=== PATIENT | female | born 1965 | race Caucasian/White ===

== ENCOUNTER 2016-10-23 19:15 | Emergency (ER) | payer MEDICARE ==
[2016-10-23 19:55] VITALS: BP 131/67
[2016-10-23] MEDS ORDERED: HYDROcodone/ACETAMIN 5-325 MG* 1 TAB PO ONE (20:21)
--- NOTE | 2016-10-23 20:59 | RAD ---
INDICATION: Shoulder pain after a fall COMPARISON: None. TECHNIQUE: 4 views of the right shoulder were obtained. FINDINGS: Depicted best on the AP view, the clavicle is superiorly displaced from the acromium more than one width of the bone. The clavicle is elevated approximately 1.8 cm above the coracoid process. No acute fracture is radiographically apparent. A bony focus overlying the superior lateral aspect of the humeral head could represent calcium in the supraspinatus tendon. IMPRESSION: 1. RADIOGRAPHIC FEATURES ARE CONSISTENT WITH A ROCKFORD TYPE 3 ACROMIOCLAVICULAR SEPARATION. 2. CHRONIC FINDINGS INCLUDE APPEARANCE THAT CAN BE SEEN IN THE SETTING OF SUPRASPINATUS CALCIFIC TENDINITIS.
--- NOTE | 2016-10-23 21:15 | UC ---
Shoulder Pain HPI - HPI Summary HPI Summary: The patient comes in today for: 1. Right shoulder pain: Onset: 1 hour ago. Palliative/provocative: Shoulder movement makes it worse. Quality: Sharp Region: Right shoulder. Severity: At rest: 5/10 Time: Constant. Associated symptoms: Numbness or weakness: None. Event: She fell down steps (she has MS). Treatment: 600 ibuprofen which did not help. She has not had any problems with hydrocodone which she takes for migraine headaches. 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 Psychological History: Depression - Surgical History Surgical History: Yes Surgery Procedure, Year, and Place: bilat broken leg repairs - Family History Known Family History: Positive: Diabetes Negative: Cardiac Disease, Hypertension - Social History Alcohol Use: Weekly Substance Use Type: None Substance Use Comment - Amount & Last Used: daily usage Smoking Status (MU): Never Smoked Tobacco Review of Systems Constitutional: Negative Skin: Negative Eyes: Negative ENT: Negative Respiratory: Negative Cardiovascular: Negative Gastrointestinal: Negative Musculoskeletal: Arthralgia All Other Systems Reviewed And Are Negative: Yes Physical Exam Triage Information Reviewed: Yes Appearance: Well-Appearing, No Pain Distress, Well-Nourished Vital Signs: Initial Vital Signs Temp 99.0 F 10/23/16 19:51 Pulse 76 10/23/16 19:51 Resp 18 10/23/16 19:51 BP 131/67 10/23/16 19:51 Pulse Ox 100 10/23/16 19:51 Vital Signs Reviewed: Yes Eyes: Positive: Conjunctiva Clear. Negative: Discharge ENT: Positive: Hearing grossly normal. Negative: Pharyngeal erythema, Nasal congestion, Nasal drainage, TM bulging, TM dull, TM red, Tonsillar swelling, Tonsillar exudate Dental: Negative: Gross Decay/Caries @, Dental Fracture @ Neck: Positive: Supple, Nontender, No Lymphadenopathy Respiratory: Positive: Chest non-tender, Lungs clear, No respiratory distress, No accessory muscle use. Negative: Crackles, Wheezing Cardiovascular: Positive: RRR, No Murmur Abdomen Description: Positive: Nontender, No Organomegaly. Negative: Distended , Guarding Musculoskeletal: Positive: Strength Intact, ROM Intact, No Edema, Other: - She has an abrasion of the superior right shoulder. No marked deformation of the shoulder. NVI. Neurological: Positive: Alert, Muscle Tone Normal Psychological: Positive: Age Appropriate Behavior, Consolable Skin: Negative: rashes, breakdown Diagnostics - Radiology No standard instances Xray Interpretation: Positive (See Comments) - IMPRESSION: 1. RADIOGRAPHIC FEATURES ARE CONSISTENT WITH A ROCKFORD TYPE 3 ACROMIOCLAVICULAR SEPARATION. 2. CHRONIC FINDINGS INCLUDE APPEARANCE THAT CAN BE SEEN IN THE SETTING OF SUPRASPINATUS CALCIFIC TENDINITIS. Radiology Interpretation Completed By: Radiologist Shoulder Course/Dx - Differential Dx/Diagnosis Provider Diagnoses: Type III separation of the right AC joint. Discharge - Discharge Plan Condition: Stable Disposition: HOME Patient Education Materials: Acromioclavicular Separation (ED) Referrals: Glenn Tai MD [Primary Care Provider] - Jah Norris MD [Medical Doctor] - As Soon As Possible (Please contact Dr. Norris's office for an appointment this Tuesday for a type III AC joint separation. Take the pain medication as needed. )
== END 2016-10-23 21:43 | disposition home or self-care (01) ==
LOC: UCEAST 19:15
DX: S43.101A Unspecified dislocation of right acromioclavicular joint, initial encounter (principal); W10.9XXA Fall (on) (from) unspecified stairs and steps, initial encounter; Y93.9 Activity, unspecified; Y92.9 Unspecified place or not applicable; G35 Multiple sclerosis; F32.9 Major depressive disorder, single episode, unspecified; Z88.5 Allergy status to narcotic agent; Z88.2 Allergy status to sulfonamides; Z91.040 Latex allergy status
CPT/HCPCS: 99213; G0463

== ENCOUNTER 2016-12-20 10:16 | Emergency (ER) | payer MEDICARE ==
[2016-12-20 11:19] VITALS: BP 109/65
--- NOTE | 2016-12-20 11:48 | UC ---
Lower Extremity/Ankle HPI - HPI Summary HPI Summary: 51 y/o female presents to the urgent care c/o rash in her RT arm for 1 week and LF ankle pain since yesterday s/p falling and twisting her ankle on a wet floor. Pain is 5/10 w/ movement and walking , specially in the medial aspect. of her ankle. She states her cat slept over her arm 1 week ago and the next morning she had rash. It itches and she has applied OTC medications for itchiness and it is not resolving. Pt denies swelling, fever, SOB, N/V/D, chest pain, - History of Current Complaint Chief Complaint: UCLowerExtremity Stated Complaint: SKIN COMPLAINT,LEFT ANKLE PAIN Time Seen by Provider: 12/20/16 11:46 Hx Obtained From: Patient Hx Last Menstrual Period: 11/19/16 ?: No Onset/Duration: Sudden Onset, Lasting Days, Still Present Severity Initially: Moderate Severity Currently: Moderate Pain Intensity: 5 Pain Scale Used: 0-10 Numeric Aggravating Factor(s): Ambulation Alleviating Factor(s): Rest Able to Bear Weight: Yes - Risk Factors Gout Risk Factors: Negative DVT Risk Factors: Negative Septic Arthritis Risk Factor: Negative - Allergies/Home Medications Allergies/Adverse Reactions: Allergies Allergy/AdvReac Type Severity Reaction Status Date / Time Hydromorphone [From Dilaudid] Allergy Intermediate Itching Verified 12/20/16 11: 20 Sulfa Antibiotics Allergy Intermediate Rash Verified 12/20/16 11:20 Latex Allergy Rash Verified 12/20/16 11:20 Sandalwood Fragrance Oil Allergy See Comment Verified 12/20/16 11:20 Sumatriptan [From Imitrex] Allergy Difficulty Verified 12/20/16 11:20 Breathing PMH/Surg Hx/FS Hx/Imm Hx Previously Healthy: Yes Other Endocrine History: MS - Surgical History Surgical History: Yes Surgery Procedure, Year, and Place: bilat broken leg repairs - TIBIA FX W/ SCREWS/PINS & PLATES - Family History Known Family History: Positive: Diabetes Negative: Cardiac Disease, Hypertension - Social History Occupation: Employed Full-time Lives: With Family Alcohol Use: Occasionally Substance Use Type: None Substance Use Comment - Amount & Last Used: daily usage Smoking Status (MU): Never Smoked Tobacco Review of Systems Constitutional: Negative Skin: Rash - LF arm Eyes: Negative ENT: Negative Respiratory: Negative Cardiovascular: Negative Gastrointestinal: Negative Genitourinary: Negative Motor: Negative Neurovascular: Negative Musculoskeletal: Other: - LF ankle pain s/p fall Neurological: Negative Psychological: Negative All Other Systems Reviewed And Are Negative: Yes Physical Exam Triage Information Reviewed: Yes Appearance: Well-Appearing, No Pain Distress, Well-Nourished, Thin Vital Signs: Initial Vital Signs Temp 98.2 F 12/20/16 11:14 Pulse 77 12/20/16 11:14 Resp 14 12/20/16 11:14 BP 109/65 12/20/16 11:14 Pulse Ox 100 12/20/16 11:14 Vital Signs Reviewed: Yes Eye Exam: Normal Eyes: Positive: Conjunctiva Clear - PERRLA, EOMI, fundi grossly normal ENT Exam: Normal ENT: Positive: Normal ENT inspection, Hearing grossly normal, Pharynx normal, TMs normal Dental Exam: Normal Neck exam: Normal Neck: Positive: Supple, Nontender, No Lymphadenopathy Respiratory Exam: Normal Respiratory: Positive: Chest non-tender, Lungs clear, Normal breath sounds Cardiovascular Exam: Normal Cardiovascular: Positive: RRR, No Murmur, Pulses Normal Abdominal Exam: Normal Abdomen Description: Positive: Nontender, No Organomegaly, Soft. Negative: CVA Tenderness (R), CVA Tenderness (L) Bowel Sounds: Positive: Present Musculoskeletal: Positive: Other: - LF ankle with swelling in the lateral malleolus, no tenderness on palapation, Limited ROM due to pain. point tenderness on the medial malleolus, no swelling observed, Positive pulses, capillary refill intact, sensation intact, Lower Extremity Course/Dx - Course Course Of Treatment: 51 y/o female presents to the urgent care c/o rash in her RT arm for 1 week and LF ankle pain since yesterday s/p falling and twisting her ankle on a wet floor. Pain is 5/10 w/ movement and walking , specially in the medial aspect. of her ankle. She states her cat slept over her arm 1 week ago and the next morning she had rash. It itches and she has applied OTC medications for itchiness and it is not resolving. Pt denies swelling, fever, SOB, N/V/D, chest pain,Hx obtained. LF ankle X ray ordered: Impression: Left ankle with lateral swelling. Probably ankle sprain. Pt ankle immobilized with an carmen bacndage and gel splint, refused crutches. Pt Rx Iburpofen PO to allevaite pain and swelling and advised RICE. F/u with PCP if symptoms are not resolving. Pt Rx hidrocortisone 1% cream for her rash. - Differential Dx/Diagnosis Differential Diagnosis/HQI/PQRI: Cellulitis, Fracture (Closed), Sprain, Strain, Other - localized allergic reaction, dermatitis, Provider Diagnoses: 1- Left ankle pain. 2-unspecified rash Discharge - Discharge Plan Condition: Stable Disposition: HOME Prescriptions: Hydrocortisone 1% CREAM(NF) 1 applic TOPICAL BID #1 tube Patient Education Materials: Ankle Sprain (ED), Acute Rash (ED) Referrals: Glenn Tai MD [Primary Care Provider] - 1 Week Additional Instructions: 1- Pleae take ibuprofen as instructed after meals to alleviate pain and swelling. Keep your ankle immobilized and apply ice and rest If symptoms do not improve or worsen please return to the urgent care or f/u with your PCP for further evaluation and treatment 2- Apply topical cream in the affected area if not improvement please f/u with your PCP for further treatment
--- NOTE | 2016-12-20 12:28 | RAD ---
INDICATION: Left ankle injury COMPARISON: None TECHNIQUE: AP, lateral, and oblique views were obtained. FINDINGS: There is no acute fracture or dislocation. There is prominent lateral soft tissue swelling. IMPRESSION: LATERAL SOFT TISSUE SWELLING.
== END 2016-12-20 13:12 | disposition home or self-care (01) ==
LOC: UCCORT 10:16
DX: R21 Rash and other nonspecific skin eruption (principal); M25.572 Pain in left ankle and joints of left foot; Z88.2 Allergy status to sulfonamides; Z88.5 Allergy status to narcotic agent; Z91.040 Latex allergy status
CPT/HCPCS: 99213; G0463

== ENCOUNTER 2017-11-02 06:20 | Day surgery (SDC) | payer MEDICARE ==
--- NOTE | 2017-10-24 03:57 | HP ---
PREOPERATIVE HISTORY AND PHYSICAL: DATE OF ADMISSION/SURGERY: 11/02/17 DATE OF OFFICE VISIT: 10/21/17 ATTENDING SURGEON: Saida Hopkins MD * (DICTATED BY ANTONIA MEDEIROS) PROCEDURE: Right shoulder open coracoclavicular reconstruction with tibialis anterior allograft. CHIEF COMPLAINT: Right shoulder. HISTORY OF PRESENT ILLNESS: Katrin is a 52-year-old female who presents to the clinic for right shoulder pain due to AC joint separation. She failed conservative measures and had continued pain; therefore, the patient has agreed to undergo a right shoulder open coracoclavicular reconstruction with tibialis anterior allograft with Dr. Hopkins on 11/02/17. PAST MEDICAL HISTORY: Depression and MS. PAST SURGICAL HISTORY: ORIF of the bilateral legs. Denies prior complications with anesthesia. MEDICATIONS: 1. Vitamin D3 1000 units 2 daily. 2. Duloxetine 60 mg 1 cap daily. 3. Gilenya 0.5 mg 1 daily. 4. Doxepin 10 mg 1 capsule by mouth at bedtime. 5. Iron 90 mg 1 daily. ALLERGIES: IMITREX, SULFA, DILAUDID, LATEX, SANDALWOOD. FAMILY HISTORY: Positive for diabetes, cancer on her father's side and breast cancer on her mother's side. Denies family history of DVT or PE. SOCIAL HISTORY: She lives alone. 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. She denies tobacco use. She reports occasional alcohol consumption. She is right- hand dominant. REVIEW OF SYSTEMS: A 14-point review of systems was reviewed with the patient. Positive for current complaint, otherwise negative. Denies fevers, chills, chest pain, shortness of breath, history of bleeding disorder, history of DVT or PE, history of MRSA. PHYSICAL EXAMINATION GENERAL: A 52-year-old, well-developed, well-nourished female, in no acute distress, alert and oriented x3. Appropriate mood and affect. VITAL SIGNS: Height 63, weight 138, blood pressure 122/69, respiratory rate 16 , BMI 24.4. HEENT: Normocephalic, atraumatic. PERRLA. Throat clear. NECK: Supple. PULMONARY: Lungs are clear to auscultation bilaterally. No wheezing, rhonchi, or rales. CARDIO: Regular rate and rhythm. S1 and S2. No murmurs, gallops, or rubs. No edema. ABDOMEN: Positive bowel sounds, soft, nontender. NEURO: Alert and oriented x3. Cranial nerves grossly intact. Sensation intact to light touch. MUSCULOSKELETAL: Right upper extremity: Skin is intact. No warmth or erythema. Obvious deformity and tenderness to palpation of the AC joint. Forward flexion to 150; abduction to 140, which is painful; external rotation to 60; internal rotation to T8. +5/5 strength to rotator cuff testing, but with pain. +5/5 gum puller strength. +2 radial pulse. Sensation intact to light touch distally. DIAGNOSTIC STUDIES: MRI reveals AC separation, biceps tendinitis and mild impingement. IMPRESSION: Right shoulder AC separation. PLAN: The patient is scheduled to undergo a right shoulder open coracoclavicular reconstruction with tibialis anterior allograft with Dr. Hopkins on 11/02/17. She will follow up in 10 to 14 days postop for followup and suture removal. Percocet will be used for postop pain management. ANTONIA MEDEIROS [id number]/[facility] #: [id number] [place]
[~2017-11-02 06:20] MED LIST: Buffered Lidocaine 0.9% SYRIN* 5 ML/SYR SYRINGE INTRADERM ONE; ceFAZolin 2 GM PREMIX (*) 2 GM/50 ML BAG IVPB ONE
[2017-11-02] MEDS ORDERED: Lidocaine 2% PF * 5 ML VIAL ONE (07:16)
[2017-11-02] MEDS ORDERED: Midazolam* 1 MG/ML 2 ML VIAL (2 MG) ONE (07:18)
[2017-11-02] MEDS ORDERED: fentaNYL* 50 MCG/ML 2 ML VIAL (100 MCG VIAL) ONE ×2 (07:18→08:17)
[2017-11-02] MEDS ORDERED: Propofol* 10 MG/ML 20 ML BTL IV PUSH ONE (07:19)
[2017-11-02] MEDS ORDERED: Rocuronium* 10 MG/ML VIAL ONE (07:19)
[2017-11-02] MEDS ORDERED: oxyCODONE/Acetamin 5/325 MG* TAB PO PRN (07:59)
[2017-11-02] MEDS ORDERED: fentaNYL* 50 MCG/ML 2 ML VIAL (100 MCG VIAL) IV PRN (07:59)
[2017-11-02] MEDS ORDERED: Ondansetron INJ* 2 MG/ML VIAL IV PRN (07:59)
[2017-11-02] MEDS ORDERED: PROCHLORPERAZINE INJ 5 MG/ML 2 ML VIAL IV PRN (07:59)
[2017-11-02] MEDS ORDERED: oxyCODONE TAB* 5 MG TAB PO PRN (07:59)
[2017-11-02] MEDS ORDERED: Acetaminophen IV 1GM/100ML * 1,000 MG/100 ML VIAL IVPB ONE (07:59)
[2017-11-02] MEDS ORDERED: Naloxone* 0.4 MG/ML 1 ML VIAL IV PRN (07:59)
[2017-11-02] MEDS ORDERED: Ketorolac INJ* 30 MG/ML 1 ML VIAL ONE (08:01)
[2017-11-02] MEDS ORDERED: Scopolamine 1.5 mg* PATCH ONE (08:01)
[2017-11-02] MEDS ORDERED: Famotidine IV* 10 MG/ML 2 ML (20 mg) ONE (08:01)
[2017-11-02] MEDS ORDERED: Sterile Water for Inj* 10 ML ONE (08:03)
[2017-11-02] MEDS ORDERED: Morphine INJ* 2 MG/ML 1 ML CARPUJECT IV PRN (08:06)
[2017-11-02] MEDS ORDERED: Bupivacaine 0.5% SDV PF* 30ML VIAL ONE (08:18)
[2017-11-02] MEDS ORDERED: Desflurane* 240 ML INH ONE (08:31)
[2017-11-02] MEDS ORDERED: Morphine INJ* 10 MG/ML 1 ML CARPUJECT ONE (08:48)
[2017-11-02] MEDS ORDERED: Sugammadex * 500 MG/5 ML VIAL IV PUSH ONE (09:46)
[2017-11-02] MEDS ORDERED: Acetaminophen IV 1GM/100ML * 100 ML ONE (10:46)
[2017-11-02] MEDS ORDERED: PROCHLORPERAZINE INJ 5 MG/ML 2 ML VIAL ONE (11:20)
--- NOTE | 2017-11-02 11:58 | RAD ---
CPT II Codes: G9500 INDICATION: Left clavicle fracture Fluoroscopic services provided for referring physician. 10.5 seconds of fluoroscopy time was used. 4 spot images demonstrates presumed resection of the distal clavicle. IMPRESSION: Fluoroscopic services provided for referring physician.
[2017-11-02 12:22] VITALS: BP 113/66
--- NOTE | 2017-11-03 14:01 | OP ---
CC: PCP, Glenn Tai MD * DATE OF OPERATION: 11/02/17 - [facility] DATE OF : 65 SURGEON: Saida Hopkins MD. RAILROAD CAR CLEANING SUPERVISOR: ANTONIA Maher. An assistant hvac mechanic was needed for the entirety of the case to help with positioning, retraction, and was utilized throughout all portions of the case. ANESTHESIOLOGIST: Monica Walton MD. ANESTHESIA: General. PRE-OP DIAGNOSIS: Type 5 acromioclavicular dislocation. POST-OP DIAGNOSIS: Type 5 acromioclavicular dislocation. OPERATIVE PROCEDURE: Right shoulder AC joint reconstruction with allograft. COMPLICATIONS: None. ESTIMATED BLOOD LOSS: 50 cc. IMPLANTS: Two PEEK Arthrex 5.5 x 8 mm Bio-Tenodesis screws. INDICATIONS: Katrin Madrid is a 52-year-old female who fell down her steps in October a year ago. She tried to treat this conservatively, but had persistent pain and impairments in her function. After extensive discussion of the risks and benefits of surgical versus nonoperative treatment, she has elected to proceed with surgical treatment. Risks include but not limited to bleeding; infection; damage to nerves, vessels, surrounding structures; wound nonhealing; persistent pain; need for further surgery; scarring; stiffness; fracture; failure; risks of anesthesia; damage to surrounding vessels; incomplete relief of pain; as well as the risk of DVT. She elected to proceed. DESCRIPTION OF PROCEDURE: The patient was greeted in the preoperative area by the attending surgeon. Correct extremity was marked and consent was confirmed. The patient was brought back to the operating suite where she was appropriately positioned on the operating table. She then underwent general anesthesia, endotracheal intubation. She was placed in a lazy beach chair position, after which the fluoro was used to confirm her displacement due to loss of visualization. The right shoulder was then prepped and draped in the usual sterile fashion beginning with chlorhexidine soap, scrub, and alcohol wipe and a final prep with ChloraPrep. After appropriate surgical pause indicating site, side, procedure, and administration of antibiotics, a saber incision was then made encompassing the AC joint and the coracoid. The soft tissues were carefully dissected to expose the deltoid and trapezial fascia. An incision was made in line with that along the clavicle to split. The clavicle was then fully exposed for at least 5.5 mm medially to fully laterally. The small AC joint disk was released, the clavicle was found to be completely dislocated. At this point, soft tissues were removed. Fascia was preserved for later closure as well as the AC joint. Once the deltoid and pec fascia were removed off of the clavicle anteriorly, this was followed carefully and the coracoid was identified. It was then exposed on the superior portion and then at this point, gently a dissection was carried around to allow for a Satinsky clamp, which was then used to pass a suture shuttle once. This was passed to allow for a loop suture. Attention was directed to the clavicle. The measurements were made and the conoid tunnel sutures placed more posteriorly along the clavicle at around 45 mm medial to the lateral edge of the clavicle and the trapezoid was marked to be more midline and approximately 15 to 20 mm more lateral to the conoid tunnel. At this point, a distal clavicle excision was done to remove the lateral 8 to 10 mm of the clavicle, after which 2 of the appropriate guidewires were then drilled, beginning first at the conoid, then second at the trapezoid to allow for tunnels to later be reamed once the graft had been determined. In the meantime, the graft had been thawed on the back table; this was a hamstring allograft and this was then whipstitched on each end and placed in tension for at least 15 minutes with 15 pounds of tension to remove the crease from the graft. After this was done, it was found to be at least 5 mm in width and then the center is more robust to almost 5.5 to 6 mm. The tunnel were then drilled over the conoid and trapezoid, tunnels were then drilled over the guidewires with a 5.5 mm reamer. All excess bone was removed. Two passing sutures were placed through the tunnel, the graft was then first passed through under the coracoid after the previously passed loop suture. With passing of the graft, a FiberTape was also passed under the coracoid. At this point, the 2 ends of the allograft were then crossed but the FiberTape was not crossed. The FiberTape as well as the graft sutures were then passed first through the conoid tunnel and then the remaining ones were passed through trapezoid tunnel to help with tension. At this point, the conoid tunnel was fixated first. The FiberTape was passed through the center of the 5.5 PEEK screw with inferior to superior directed pressure on the elbow, and superior to inferior directed pressure on the clavicle to over-reduce the clavicle, the conoid tunnel was secured with a 5.5 mm screw. The remaining graft through the trapezoid tunnel was also pulled under tension and with the clavicle over-reduced, the second screw was passed in the similar fashion. This helped restore and fix the obvious AC dislocation. At this point, the FiberTape sutures that were passed through the center of the islet were also tied down. This helped as an internal brace for this fixation. X-rays were obtained and demonstrate the clavicle was satisfactorily reduced. At this point, the 2 ends of the allograft were sewn to each other and then the excess graft was then passed over and sewn into the AC joint capsule. The wounds were then copiously irrigated with sterile saline. The fascia was closed with 0 Ethibond suture and it was a robust closure, the skin was closed with 2-0 Vicryl and a running nylon suture. Sterile dressings were applied. The wound was injected with 0.25% Marcaine plain. She was placed in a sling, awoken from anesthesia, transferred to PACU in stable condition. POSTOPERATIVE PLAN: She will be nonweightbearing for 6 weeks. She will be discharged with pain medications. I will see the patient back in 10 to 14 days. DVT prophylaxis was considered but deferred due to no previous personal or family history. [id number]/[facility] #: [id number] KASSIE
[2017-11-05] MEDS ORDERED: Scopolamine PATCH Remove* 1 NOTE MISC PATCH OFF ONE (08:02)
== END 2017-11-02 12:26 | disposition home or self-care (01) ==
LOC: OR 06:20
PROVIDERS: ATTEND Orthopaedic Surgery
DX: S43.121A Dislocation of right acromioclavicular joint, 100%-200% displacement, initial encounter (principal); M75.21 Bicipital tendinitis, right shoulder; M75.41 Impingement syndrome of right shoulder; W10.9XXA Fall (on) (from) unspecified stairs and steps, initial encounter; Y92.89 Other specified places as the place of occurrence of the external cause; G35 Multiple sclerosis; F41.8 Other specified anxiety disorders; Z87.891 Personal history of nicotine dependence; G43.909 Migraine, unspecified, not intractable, without status migrainosus
CPT/HCPCS: 76001; 81025; A9270-GY; C1713; J0690; J0780; J1885; J2250; J2270; J2704; J3010; L8699

== ENCOUNTER 2018-02-18 15:06 | Emergency (ER) | payer MEDICARE ==
--- OUTSIDE RECORDS SUMMARY | 2018-02-18 15:17 | XMS REPORT ---
:1965 External Reference #:[id number] Author Organization [facility] Address [address] [place] [address] Phone [phone] Care Team Providers Name Role Phone Luiz Tai MD Primary Care Physician Unavailable Payers Type Date Identification Numbers Payment Provider Subscriber Commercial Policy Number: [id number] Iesha Madrid PayID: [id number] Claims [address] [place] [address] Problems Description No Information Family History Date Family Member(s) Problem(s) Comments Father Bipolar Disorder Father due to Suicide () Father Diabetes Mother Breast Cancer Children None Siblings 2 Siblings Youngest of three children First Brother A&W First Sister A&W Paternal Grandfather due to Unknown to patient () Paternal Grandmother due to Old Age () Maternal Grandfather due to NC () Maternal Grandmother due to Liver Cancer () Social History Type Date Description Comments Education Highest Level Completed, Master's Degree Marital Status Single Lives With Alone Pets 1 cat 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 Cigarette Use Never Smoked Cigarettes ETOH Use Denies alcohol use Recreational Drug Use Denies Drug Use Smoking Patient has never smoked Daily Caffeine Does not consume caffeine Exercise Type/Frequency Does not exercise Seat Belt/Car Seat Always uses seat belt Currently Active Patient is currently sexually active Contraceptive Methods Current methods include levonorgestrel IUD Allergies, Adverse Reactions, Alerts Date Description Reaction Status Severity Comments 12/16/2017 Dilaudid active 12/16/2017 Imitrex active 12/16/2017 Sulfa active Medications Medication Date Status Form Strength Qnty SIG Indications Ordering Provider Gilenya Active Unknown Fluoxetine HCL Active Unknown (PMDD) Doxepin HCL Active Unknown Liletta (52 MG) Active Unknown Medications Administered in Office Medication Date Status Form Strength Qnty SIG Indications Ordering Provider PT SCRN Tbco Administered Injection Vic Ford Id as Non User 018 Danny Jo Vital Signs Date Vital Result Comment 02/07/2018 BP Systolic 102 mmHg BP Diastolic 72 mmHg Height 62 inches 5'2" Last Menstrual Period [id number] 12/16/2017 BP Systolic 116 mmHg BP Diastolic 64 mmHg Height 62 inches 5'2" Weight 139.00 lb BMI (Body Mass Index) 25.4 kg/m2 Last Menstrual Period [id number] 0 Results Test Date Test Result H/L Range Note Ovarian Tumor Panel 12/16/2017 Cea 1.2 ng/mL 0.1-5.0 1 Ca125 25.2 U/mL 0-35 2 Afp Tumor Marker 1.7 ng/mL 3 HCG < 0.60 mIU/mL 4 Laboratory test finding 12/16/2017 LDH 176 U/L 140-271 5 1 Nonsmokers: < 2.9 ng/mL Some smokers may have elevated CEA, usually <5.0 ng/mL. Serum markers are not specific for malignancy, and values may vary by method. The testing method is an immunoenzymatic assay visiting housekeeper by [employer] performed on [employer] DXI 600. Do not interpret serum CEA levels as absolute evidence of the presence or the absence of malignant disease. Use serum CEA in conjunction with information from the clinical evaluation of the patient and other diagnostic procedures. 2 Instrument used is [employer] DXI 600. The assay is a two-site immunoenzymatic "sandwich" assay. Do not interpret CA125 levels as absolute evidence of the presence or the absence of malignant disease. Use in conjunction with information from the clinical evaluation of the patient and other diagnostic procedures. Values obtained with different assay methods cannot be used interchangeably. 3 REFERENCE VALUE <6.0 Reference values are for non- subjects only; production of AFP elevates values in women. ADDITIONAL INFORMATION The testing method is an immunoenzymatic assay manufactured by [employer]. and performed on the [employer] DxI 800. Values obtained with different assay methods or kits may be different and cannot be used interchangeably. Test results cannot be interpreted as absolute evidence for the presence or absence of malignant disease. Alpha-Fetoprotein values are not interpretable in females for the investigation of malignant disease. Test Performed by: [facility] [employer] [facility] [address] [place] [address] 4 <5.0 Negative 5.0 - 25.0 Indeterminate (Repeat testing recommended after 72 hours) >25.0 Positive Perimenopausal women can display HCG levels of up to 20 mIU/mL 5 [id number] Procedures Date CPT Code Description Status 10/07/2017 Mammogram Completed 05/09/2016 Colonoscopy Completed Encounters Type Date Location Provider CPT E/M Dx Office Visit 12/16/2017 2:[facility] Vic Jo M.D. 24837 R19.04 Plan of Care 02/07/2018 - Vic Jo M.D.R19.04 Left lower quadrant abdominal swelling , mass and lumpComments:DISCUSSED HOW GENEN MARKER MAY OR MAY NOT CHANGE THE DECISION TO REMOVE BOTH OVARIES. PT DID NOT ASKE DR ANGEL HOW IT MIGHT AFFECT THAT. IT MAY NOT BE NECESSARY TO HAVE UTERUIS REMOVED IETHRE WAY UNLESS THE OVARY IS CANCEROUS.
--- OUTSIDE RECORDS SUMMARY | 2018-02-18 15:17 | XMS REPORT ---
:1965 External Reference #:[id number] Author Organization [facility] Address [address] [place] [address] Phone [phone] Care Team Providers Name Role Phone Glenn Tai MD Primary Care Physician Unavailable Payers Type Date Identification Numbers Payment Provider Subscriber Commercial Effective: Policy Number: [employer] [place] 2017 [id number] (Oon) PayID: [id number] [address] [place] [phone] Problems Date Description Provider Status Onset: 10/15/2009 Multiple sclerosis Estela Pemberton M.D.,FACP Onset: 01/04/2011 Atypical depressive disorder Estela Pemberton M.D.,FACP Onset: 10/28/2011 Migraine without aura, not Glenn Tai Active refractory Danny,FACP Onset: 11/20/2014 Vitamin D deficiency Estela Pemberton M.D.,FACP Onset: 08/19/2017 Mixed hyperlipidemia Estela Pemberton M.D.,FACP Onset: 09/08/2017 Dislocation of r acromioclav jt, Saida Hopkins MD Active 100%-200% displacmnt, subs Onset: 01/24/2018 Sprain of left acromioclavicular Saida Hopkins MD Active joint, subsequent encounter Family History Date Family Member(s) Problem(s) Comments Father Mental Illness Father due to Suicide () Mother Cancer, Skin melanoma Mother Breast Cancer Siblings 2 half-siblings Social History Type Date Description Comments Marital Status Significant Other Occupation Retired Occupation Currently 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 Cigarette Use Never Smoked Cigarettes ETOH Use 08/19/2017 Rarely consumes alcohol Recreational Drug Use Denies Drug Use Smoking Patient has never smoked Currently Active Patient is currently sexually active General Hx Text no kids Allergies, Adverse Reactions, Alerts Date Description Reaction Status Severity Comments 10/15/2009 Imitrex Gets Respiratory problems active 10/15/2009 Sulfa Hives active 10/15/2009 Dilaudid Ears itch active 10/15/2009 Latex Skin reaction active 10/15/2009 Sandal Wood Turns red and ortiz active Medications Medication Date Status Form Strength Qnty SIG Indications Ordering Provider Duloxetine HCL 10/15/ Active Caps DR 60mg 90cap take one Glenn 2009 Part s capsule Hugo Tai by mouth M.DCarlyle,FACP once daily Gilenya / Active Capsules 0.5mg 1 by Unknown 0000 mouth every day Doxepin HCL / Active Capsules 10mg 90cap take one Glenn 0000 s capsule Hugo Tai by mouth M.DCarlyle,FACP at bedtime Iron / Active Tablets 90(18Fe) daily Unknown 0000 mg Cyclobenzaprine 12/16/ Hx Tablets 10mg 30tab take 1 S43.121D Zaneb HCL 2017 - s tab 3 Yaseen, 01/18/ times a MD 2018 day as needed Cyclobenzaprine 11/03/ Hx Tablets 10mg 30tab take 1 Zaneb HCL 2017 - s tab 3 Yaseen, 12/16/ times a MD 2018 day as needed Percocet 10/31/ Hx Tablets 5-325mg 30tab 1-2 tabs Zaneb 2017 - s by mouth Yaseen, 01/18/ every MD 2017 4-6 hours as needed post op pain Cyclobenzaprine 11/01/ Hx Tablets 5mg 90tab 1-2 tabs S43.51xD Toni HCL 2016 - s by mouth F 08/19/ three Aaron, 2018 times a MD day as needed muscle spasm Naproxen 10/25/ Hx Tablets 500mg 60tab 1 by S43.51xA Toni 2016 - s mouth F 09/07/ twice a Aaron, 2017 day as MD needed pain Vitamin D 10/25/ Hx Tablets 1000Unit 120ta 2 every Glenn (Cholecalciferol) 2015 - day Hugo Skeltond, M.D.,FACP 2018 Pneumovax 23 02/11/ Hx Injection 25mcg/0.5M .500m 0/5 ml G35 Glenn 2016 - L l im x1 Hugo Skeltond, M.D.,FACP 2016 Zostavax 02/11/ Hx Solution [id number] 1unit 1 dose G35 Glenn 2015 - Rec .65ML s s/c x1 Hugo Skeltond, M.D.,FACP 2016 Ergocalciferol 11/25/ Hx Capsules [id number] 12cap by mouth Glenn 2014 - s q1wk for Hugo Skeltond, mon M.D.,FACP 2016 then 2x/mon Triamcinolone 11/20/ Hx Cream 0.1% 30g apply Glenn Acetonide 2014 - Hugo Tai, 04/26/ day as M.D.,FACP 2017 needed to rash on arms. Vitamin D 02/01/ Hx Capsules 400Unit 60cap 1 po bid Glenn 2010 Hugo Tai, M.D.,FACP 2011 Amitriptyline HCL 10/15/ Hx Tablets 25mg 30tab 1 po qhs Glenn 2009 - Hugo Tai, M.D.,FACP 2010 Betaseron / Hx Solution 0.3mg sc 3x/wk Unknown 0000 - Rec 2010 Gilenya / Hx Capsules 0.5mg po qd Unknown - 2014 Zolpidem Tartrate / Hx Tablets 10mg Unknown - 2011 Tramadol HCL / Hx Tablets 50mg 50tab 1-2 Abby 0000 - s tablets Reese, 02/11/ every 8 N.P. 2016 hours as needed Hydrocodone-Aceta / Hx Tablets 5-325mg 1 by Unknown minophen 0000 - mouth 09/07/ 2017 4-6 hours prn. Immunizations CPT Code Status Date Vaccine Lot # [id number] Given 02/09/2017 Influenza Virus Vaccine, Quadrivalent, Split, Preservative Free [id number] Given 02/12/2016 Influenza Virus Vaccine, Quadrivalent, Split Virus, Im Use [id number] Given 02/11/2015 Influenza Virus Vaccine, Quadrivalent, Split, Preservative Free [id number] Given 01/25/2011 Tdap - Tetanus/Diptheria/Acellular Pertussis [id number] Given 01/25/2011 Influenza Virus 3Yrs & Over [id number] Ordered 01/28/2016 Influenza Virus Vaccine, Quadrivalent, Split, Preservative Free Vital Signs Date Vital Result Comment 01/24/2018 Height 63 inches 5'3" Weight 137.00 lb Heart Rate 74 /min BP Systolic Sitting 130 mmHg Lue reg cuff BP Diastolic Sitting 86 mmHg Lue reg cuff Pain Level 1 BMI (Body Mass Index) 24.3 kg/m2 01/18/2018 Height 63 inches 5'3" Weight 137.00 lb Heart Rate 77 /min BP Systolic Sitting 140 mmHg BP Diastolic Sitting 82 mmHg Body Temperature 98.5 F O2 % BldC Oximetry 98 % BMI (Body Mass Index) 24.3 kg/m2 12/16/2017 Height 63 inches 5'3" Weight 138.00 lb BP Systolic 128 mmHg BP Diastolic 72 mmHg Respiratory Rate 20 /min Pain Level 1 BMI (Body Mass Index) 24.4 kg/m2 11/15/2017 Height 63 inches 5'3" Weight 138.00 lb Heart Rate 76 /min BP Systolic Sitting 144 mmHg LA reg cuff BP Diastolic Sitting 80 mmHg LA reg cuff Pain Level 0 BMI (Body Mass Index) 24.4 kg/m2 10/21/2017 Height 63 inches 5'3" Weight 138.00 lb BP Systolic 122 mmHg BP Diastolic 69 mmHg Respiratory Rate 16 /min Pain Level 1 BMI (Body Mass Index) 24.4 kg/m2 10/04/2017 Height 63 inches 5'3" Weight 138.00 lb BP Systolic 130 mmHg BP Diastolic 76 mmHg Respiratory Rate 18 /min Pain Level 1 BMI (Body Mass Index) 24.4 kg/m2 09/08/2017 Height 63 inches 5'3" Weight 138.00 lb Heart Rate 80 /min BP Systolic 100 mmHg BP Diastolic 78 mmHg Respiratory Rate 16 /min Body Temperature 98.2 F Pain Level 6 with use BMI (Body Mass Index) 24.4 kg/m2 08/19/2017 Height 63 inches 5'3" Weight 140.00 lb Heart Rate 83 /min BP Systolic Sitting 150 mmHg BP Diastolic Sitting 90 mmHg Body Temperature 97.8 F O2 % BldC Oximetry 97 % BMI (Body Mass Index) 24.8 kg/m2 12/27/2016 Height 62 inches 5'2" Weight 130.00 lb Heart Rate 85 /min BP Systolic Sitting 148 mmHg BP Diastolic Sitting 78 mmHg Respiratory Rate 14 /min Body Temperature 98.7 F Pain Level 0 BMI (Body Mass Index) 23.8 kg/m2 11/01/2016 Height 62 inches 5'2" Weight 130.00 lb BP Systolic 120 mmHg BP Diastolic 71 mmHg Respiratory Rate 15 /min Pain Level 4 BMI (Body Mass Index) 23.8 kg/m2 10/25/2016 Height 62 inches 5'2" Weight 130.00 lb BP Systolic 139 mmHg BP Diastolic 81 mmHg Respiratory Rate 14 /min Pain Level 4 BMI (Body Mass Index) 23.8 kg/m2 02/26/2016 Height 64 inches 5'4" Weight 132.12 lb Heart Rate 84 /min BP Systolic Sitting 108 mmHg BP Diastolic Sitting 68 mmHg Body Temperature 98.3 F O2 % BldC Oximetry 98 % BMI (Body Mass Index) 22.7 kg/m2 02/12/2016 Weight 134.00 lb Heart Rate 85 /min BP Systolic Sitting 122 mmHg BP Diastolic Sitting 64 mmHg O2 % BldC Oximetry 98 % 11/20/2014 Height 63 inches 5'3" Weight 132.50 lb Heart Rate 74 /min BP Systolic Sitting 115 mmHg BP Diastolic Sitting 67 mmHg Body Temperature 97.5 F O2 % BldC Oximetry 97 % BMI (Body Mass Index) 23.5 kg/m2 10/05/2013 Height 63 inches 5'3" Weight 137.75 lb Heart Rate 84 /min BP Systolic Sitting 118 mmHg BP Diastolic Sitting 66 mmHg Body Temperature 99.1 F BMI (Body Mass Index) 24.4 kg/m2 10/28/2011 Height 63.25 inches 5'3.25" Weight 144.75 lb Heart Rate 84 /min BP Systolic Sitting 118 mmHg BP Diastolic Sitting 70 mmHg BMI (Body Mass Index) 25.4 kg/m2 01/25/2011 Height 63 inches 5'3" Weight 142.00 lb Heart Rate 68 /min BP Systolic Sitting 125 mmHg BP Diastolic Sitting 80 mmHg BMI (Body Mass Index) 25.2 kg/m2 01/04/2011 Height 63 inches 5'3" Weight 145.00 lb Heart Rate 76 /min BP Systolic Sitting 106 mmHg BP Diastolic Sitting 60 mmHg BMI (Body Mass Index) 25.7 kg/m2 10/15/2009 Weight 148.00 lb Heart Rate 80 /min BP Systolic Sitting 118 mmHg BP Diastolic Sitting 74 mmHg Results Test Date Test Result H/L Range Note Laboratory test finding 01/23/2018 Mumps Igg <pending> Rubella Screen Immune Immune Rubeola Measles Igg AB <pending> CBC Auto Diff 01/23/2018 White Blood Count 3.6 10^3/uL 3.5-10.8 Red Blood Count 4.23 10^6/uL 4.00-5.40 Hemoglobin 13.7 g/dL 12.0-16.0 Hematocrit 40 % 35-47 Mean Corpuscular Volume 96 fL 80-97 Mean Corpuscular Hemoglobin 33 pg High 27-31 Mean Corpuscular HGB Conc 34 g/dL 31-36 Red Cell Distribution Width 13 % 10.5-15 Platelet Count 210 10^3/uL 150-450 Mean Platelet Volume 9.7 um3 7.4-10.4 Abs Neutrophils 3.0 10^3/uL 1.5-7.7 Abs Lymphocytes 0.2 10^3/uL Low 1.0-4.8 Abs Monocytes 0.3 10^3/uL 0-0.8 Abs Eosinophils 0.1 10^3/uL 0-0.6 Abs Basophils 0 10^3/uL 0-0.2 Abs Nucleated RBC 0 10^3/uL Granulocyte % 83.1 % High 38-83 Lymphocyte % 5.5 % Low 25-47 Monocyte % 9.0 % High 0-7 Eosinophil % 2.1 % 0-6 Basophil % 0.3 % 0-2 Nucleated Red Blood Cells % 0 Basic Metabolic Panel 01/23/2018 Sodium 140 mmol/L 135-145 Potassium 4.2 mmol/L 3.5-5.0 Chloride 105 mmol/L 101-111 Co2 Carbon Dioxide 29 mmol/L 22-32 Anion Gap 6 mmol/L 2-11 Glucose 82 mg/dL 70-100 Blood Urea Nitrogen 14 mg/dL 6-24 Creatinine 0.69 mg/dL 0.51-0.95 BUN/Creatinine Ratio 20.3 High 8-20 Calcium 9.1 mg/dL 8.6-10.3 Egfr Non- 89.0 >60 Egfr 107.7 >60 1 Order 01/18/2018 EKG <pending> CBC Auto Diff 01/18/2018 White Blood Count 5.0 10^3/uL 3.5-10.8 Red Blood Count 4.21 10^6/uL 4.00-5.40 Hemoglobin 13.5 g/dL 12.0-16.0 Hematocrit 41 % 35-47 Mean Corpuscular Volume 96 fL 80-97 Mean Corpuscular Hemoglobin 32 pg High 27-31 Mean Corpuscular HGB Conc 33 g/dL 31-36 Red Cell Distribution Width 12 % 10.5-15 Platelet Count 221 10^3/uL 150-450 Mean Platelet Volume 10.3 um3 7.4-10.4 Abs Neutrophils 4.3 10^3/uL 1.5-7.7 Abs Lymphocytes 0.3 10^3/uL Low 1.0-4.8 Abs Monocytes 0.4 10^3/uL 0-0.8 Abs Eosinophils 0.1 10^3/uL 0-0.6 Abs Basophils 0 10^3/uL 0-0.2 Abs Nucleated RBC 0 10^3/uL Granulocyte % 85.1 % High 38-83 Lymphocyte % 5.8 % Low 25-47 Monocyte % 7.9 % High 0-7 Eosinophil % 1.0 % 0-6 Basophil % 0.2 % 0-2 Nucleated Red Blood Cells % 0.1 Laboratory test 11/01/2017 Semiten SEE RESULTS BELO 2, 3 finding <SEE NOTE> Laboratory test 08/11/2017 Vitamin D Total 25(Oh) 8.2 ng/mL Low 20-50 finding Lipid Profile 08/11/2017 Triglycerides 53 mg/dL 4 (Trig/Chol/HDL) Cholesterol 227 mg/dL 5 HDL Cholesterol 59.5 mg/dL 6 LDL Cholesterol 157 mg/dL 7 Laboratory test finding 08/11/2017 Glucose 82 mg/dL 70-100 Doxepine 08/11/2017 Doxepin <20 ng/mL 8 Nordoxepin <20 ng/mL 9 Doxepin + Nordoxepin Level See Comment ng/mL 50-150 10 Lipid Profile (Trig/Chol/HDL) 03/01/2016 Triglycerides 47 mg/dL 11 Cholesterol 193 mg/dL 12 HDL Cholesterol 60.1 mg/dL 13 LDL Cholesterol 124 mg/dL 14 Laboratory test finding 03/01/2016 Vitamin D Total 25(Oh) 11.3 ng/mL Low 30-50 Glucose 86 mg/dL 70-100 Vitamin D, 1,25 Dihydroxy 78 pg/mL 18-78 15 Laboratory test 11/22/2014 Hepatitis C Antibody Nonreactive Nonreactive finding HIV 1/2 AB 11/22/2014 HIV 1 2 Antibody Nonreactive Nonreactive 16 Evaluation Laboratory test 11/22/2014 Vitamin D Total 25(Oh) 12.7 ng/mL Low 30-50 finding Lipid Panel 01/25/2011 Triglyceride 77 mg/dL 40-200 Cholesterol 197 mg/dL Less Than 200 17 High Density Lipoprotein 53 mg/dL 40-60 18 Cholesterol/HDL Ratio 3.72 AVERAGE 1-4.44 Low Density Lipoprotein 129 mg/dL High Less Than 100 19 Laboratory test 01/25/2011 Cytology <SEE 20 finding NOTE> Vitamin D,25 Hydroxy 01/25/2011 25-Hydroxy Vitamin <4.0 ng/mL () D2 25-Hydroxy Vitamin D3 28 ng/mL () 25-Hydroxy Vitamin D Total 28 ng/mL () 21 Comp Metabolic Panel 01/25/2011 Sodium 142 mmol/L 135-145 Potassium 4.3 mmol/L 3.5-5.0 Chloride 106 mmol/L 101-111 Co2 (Carbon Dioxide) 31.0 mmol/L 22-32 Anion Gap 5.0 mmol/L 2-11 22 Glucose 86 mg/dL 70-100 BUN 11 mg/dL 6-24 Creatinine 0.8 mg/dL 0.50-1.40 One Over Creatinine 1.25 BUN/Creatinine Ratio 13.8 8-20 Calcium 9.4 mg/dL 8.1-9.9 Total Protein 6.1 GM/DL Low 6.2-8.1 Albumin 4.1 GM/DL 3.6-5.4 Globulin 2.0 GM/DL 2-4 Albumin/Globulin Ratio 2.1 1-3 Bilirubin Total 0.5 mg/dL 0.4-1.5 23 Alkaline Phosphatase 58 U/L 30-110 Alt (SGPT) 17 U/L 14-54 Ast (Sgot) 18 U/L 12-42 eGFR Non- 77.2 > 60 eGFR 99.3 > 60 24 Laboratory test finding 01/25/2011 Platelet Count 183 CUMM 150-450 Throat-Beta Strept 07/30/2010 Throat-Beta Strep Culture NF 25 Amitriptylin 05/26/2007 Amitriptyline 24 ng/mL () 26 Nortriptyline <20 ng/mL () 27 Amitriptyline+ Nortriptyline 24 ng/mL () 28 CBC With Electronic Diff Stat 05/26/2007 White Blood Count 6.3 CUMM 4.8- 10.8 Abs Basophils 0 0-0.2 Abs Eosinophils 0.1 0-0.6 Absolute Neutrophil Count 3.8 1.5-7.7 Abs Lymphs 1.9 1.0-4.8 Abs Mononuclear 0.5 0-0.8 Basophil % 0.5 % 0-2 Hematocrit 32 % Low 35-47 Hemoglobin 11.1 g/dL Low 12.0-16.0 Eosinophil % 2.2 % 0-6 Gran % 59.5 % 38-83 Lymph % 29.5 % 20-45 Mean Corpuscular HGB Cone 35 g/dL 32-36 Mean Corpuscular Hemoglob 31 pg 27-31 Mean Corpuscular Volume 88 um3 79-97 Mean Platelet Volume 8.3 um3 7.4-10.4 Mononuclear % 8.3 % 1-9 Platelet Count 250 CUMM 150-450 Red Cell Count 3.60 CUMM Low 4.2-5.4 Redcell Distribution WDTH 13 % 10.5-15 Basic Metabolic Panel Stat 05/26/2007 One Over Creatinine 1.00 Anion Gap 12.0 mmol/L High 2-11 29 BUN 15 mg/dL 6-24 Calcium 9.4 mg/dL 8.7-10.2 Chloride 103 mmol/L 101-111 Co2 (Carbon Dioxide) 25.0 mmol/L 22-32 Glucose 94 mg/dL 70-105 Potassium 3.7 mmol/L 3.5-5.0 Sodium 140 mmol/L 135-145 BUN/Creatinine Ratio 15.0 8-20 Creatinine 1.0 mg/dL 0.5-1.4 Laboratory test finding 05/26/2007 Alcohol < 10.0 mg/dL None Detected 30 1 Because ethnic data is not always readily available, this report includes an eGFR for both -Americans and non- Americans. The National Kidney Disease Education Program (NKDEP) does not endorse the use of the MDRD equation for patients that are not between the ages of 18 and 70, are , have extremes of body size, muscle mass, or nutritional status, or are non- or non-. According to the National Kidney Foundation, irrespective of diagnosis, the stage of the disease is based on the level of kidney function: Stage Description GFR(mL/min/1.73 m(2)) 1 Kidney damage with normal or decreased GFR 90 2 Kidney damage with mild decrease in GFR 60-89 3 Moderate decrease in GFR 30-59 4 Severe decrease in GFR 15-29 5 Kidney failure <15 (or dialysis) 2 DISLOATION OF RIGHT ACROMIOCLAVICULAR JOINT, 100%- 3 SEE RESULTS BELOW [id number] [facility] 11/02/17 0734 4 Desirable: <150 Borderline High: 150-199 High: 200-499 Very High: >500 5 Desirable: <200 Borderline High: 200-239 High: >239 6 Low: <40 Desirable: 40-60 High: >60 7 Desirable: <100 Near Optimal: 100-129 Borderline High: 130-159 High: 160-189 Very High: >189 8 REFERENCE VALUE Not applicable 9 REFERENCE VALUE Not applicable 10 RESULT: Unable to calculate total ADDITIONAL INFORMATION This test was developed and its performance characteristics determined by [facility] in a manner consistent with CLIA requirements. This test has not been cleared or approved by the U.S. Food and Drug Administration. Test Performed by: [facility] [address] [place] [address] 11 Desirable <150 Borderline high 150-199 High 200-499 Very High >500 12 Desirable <200 Borderline high 200-239 High >239 13 Low <40 Desirable: 40-60 High: >60 14 Desirable: <100 mg/dL Near Optimal: 100-129 mg/dL Borderline High: 130-159 mg/dL High: 160-189 mg/dL Very High: >189 mg/dL 15 ADDITIONAL INFORMATION This test was developed and its performance characteristics determined by [facility] in a manner consistent with CLIA requirements. This test has not been cleared or approved by the U.S. Food and Drug Administration. Test Performed by: [address] [address] [employer] Engineer: Duncan Arroyo II, M.D., Ph.D. 16 It is recognized that currently available assays for the detection of antibodies to HIV-1 and/or HIV-2 may not detect all infected individuals. HIV antibodies may be undetectable in some stages of the infection and in some clinical conditions. The performance of this assay has not been established for populations of infants or children. Assayed by Chemiluminescence Microparticle Immunoassay on the Siemens Advia Centaur CP. Values obtained with different methods or kits cannot be used interchangeably.The diagnostic specificity of the ADVIA Centaur 1/O/2 Enhanced assay in the low risk population was 99.90% (6052/6058) with a 95% confidence interval of 99.78 to 99.96%. 17 CHOLESTEROL INTERPRETATION: Desirable: Less than 200 MG/DL Borderline-High Risk: 200-239 MG/DL High-Risk: 240 MG/DL and over 18 HDL INTERPRETATION: Undesirable: High Risk: Less than 40 MG/DL Desirable: Low Risk: Greater than 60 MG/DL 19 LDL INTERPRETATION: Low Risk Optimal Level: LDL Less than 100 MG/DL Near or Above Optimal: LDL 100-129 MG/DL Borderline High Risk: LDL 130-159 MG/DL High Risk: LDL 160-189 MG/DL Very High Risk: LDL Greater than 189 MG/DL 20 ---- RUN DATE: 01/26/11 [facility] NMI LIVE PAGE 1 RUN TIME: 1518 Specimen Inquiry RUN USER: INTERFACE -- Name: SYDNEY MADRID Status: REG REF Re01/25/11 Age/Sex: 46/F Unit#: [id number] Location: [facility]. : 65 -- Specimen: [id number] SOUT Spec Date: 01/25/11 [facility] Dr: Abby mcmillan DOCTOR OF CHIROPRACTIC Spec Type: CYTOLOGY Received: 01/26/11 Copies to: SOURCE ECTOCERVICAL/ENDOCERVICAL Thin Prep with Reflex HPV Test PATIENT INFORMATION ACTUAL COLLECTION DATE: 01/25/11 ? No POST MENOPAUSAL? No HYSTERECTOMY? No PATIENT HISTORY: Last menstrual period not given. ADEQUACY OF SPECIMEN Satisfactory for evaluation * Transformation zone component not identified * DIAGNOSIS NEGATIVE FOR INTRAEPITHELIAL LESION OR MALIGNANCY * This Pap test was evaluated with the assistance of the ThinPrep Pap Test Imaging System. The Pap Smear is a screening test designed to aid in the detection of premalign ant and malignant conditions of the uterine cervix. It is not a diagnostic procedure a nd should not be used as the sole means of detecting cervical cancer. Both false- positiv e and false-negative reports do occur. Depending on your risk status, a Pap smear tara uld be obtained and evaluated every one to three years. Initial evaluation performed by [facility]) 01/26/11 Final Interpretation electronically signed by: [facility]) 01/26/11 151 8 -- -- DEPARTMENT OF PATHOLOGY, [address] [place] [address] [facility] Permit #[id number] Danny Edwards M.D. Gantry Rigger tristian -- 21 -- REFERENCE VALUE -- 25-HYDROXY D TOTAL (D2+D3) Optimum levels in the normal population are 25-80 Test Performed by: [facility] Dpt of Lab Med and Pathology [address] [place] [address] Wastewater Design Engineer: Hernandez Pena III, M.D. 22 Anion gap measurement may be of limited value in the presence of any alkalosis, especially in a combined acid base disorder. . 23 A metabolite of Naproxen, O-desmethylnaproxen, has been shown to interfere with the [place] method for measuring total bilirubin. Samples from patients who have taken Naproxen have shown spurious elevation in total bilirubin levels. 24 Because ethnic data is not always readily available, this report includes an eGFR for both -Americans and non- Americans. The National Kidney Disease Education Program (NKDEP) does not endorse the use of the MDRD equation for patients that are not between the ages of 18 and 70, are , have extremes of body size, muscle mass, or nutritional status, or are non- or non-. According to the National Kidney Foundation, irrespective of diagnosis, the stage of the disease is based on the level of kidney function: Stage Description GFR(mL/min/1.73 m(2)) 1 Kidney damage with normal or decreased GFR 90 2 Kidney damage with mild decrease in GFR 60-89 3 Moderate decrease in GFR 30-59 4 Severe decrease in GFR 15-29 5 Kidney failure <15 (or dialysis) 25 NEGATIVE FOR GROUP A BETA STREPTOCOCCUS 26 -- REFERENCE VALUE -- Not defined Due to interference, patients co-administered Clomipramine may have falsely low results. 27 -- REFERENCE VALUE -- 50-150 (Therapeutic concentration) >500 (Toxic concentration) Due to interference, patients co-administered Clomipramine may have falsely low results. 28 -- REFERENCE VALUE -- 75-225 (Total therapeutic concentration) >1000 (Total toxic concentration) NOTE: Reference values apply to specimens not obtained from separator tubes. Test Performed by: [facility] Dpt of Lab Med and Pathology [address] [place] [address] Wastewater Design Engineer: Hernandez Pena III, M.D. 29 Anion gap measurement may be of limited value in the presence of any alkalosis, especially in a combined acid base disorder. . 30 The detection limit for ETHANOL is 10.0 mg/dl . Values less than 10.0 mg/dl cannot be accurately measured. . Procedures Date CPT Code Description Status Comment 01/18/2018 55862 EKG Tracing & Interpretation Completed 11/02/2017 07728 Open TX ACL Acute Or Chronic Completed 11/02/2017 80998 Open TX ACL Acute Or Chronic Completed 08/31/2017 Mammogram Completed 10/25/2016 05535 Dislocation Acromioclavicular W/O Completed Manipulation 02/12/2016 67747 EKG Tracing & Interpretation Completed 11/22/2014 Bone Mineral Density Test Completed 11/22/2014 Mammogram Completed 11/20/2014 15543 EKG Tracing & Interpretation Completed 10/10/2013 Mammogram Completed 01/29/2011 Diabetic Retinal Eye Exam Completed Document: 01/29/11 - Consult Ophthalmology/Weeks 01/04/2011 81743 EKG Tracing & Interpretation Completed 09/02/2010 Mammogram Completed 07/14/2009 Mammogram Completed Encounters Type Date Location Provider CPT E/M Dx Office Visit 10/04/2017 [place] [address] S43.121D 3:00p [facility] Office Visit 09/08/2017 [place] [address] S43.121D 11:00a [facility] Office Visit 02/12/2016 [facility] Internal Medicine Glenn Tai, [address]338 G35 4:20p - Tbemily Becerril M.D.,FACP Z30.019 G43.009 I45.81 Office Visit 10/05/2013 3:00p [facility] Internal Medicine Abby Leigh N.P. 00136 346.10 - Paolo 311 340 V76.19 V77.91 V77.1 V70.0 Office Visit 10/28/2011 10:50a [facility] Internal Medicine Glenn Tai, 97406 311 - Paolo Delgado,FACP 346.10 Office Visit 01/25/2011 1:00p DO Not Use Ward Assistant AT Abby Leigh, N.P. 50408 780.52 [facility] 340 V70.0 V04.81 V72.31 Office Visit 01/04/2011 10:30a DO Not Use Ward Assistant AT Glenn Tai, [address] 340 Bakari Delgado,FACP 719.45 296.82 726.19 426.82 Office Visit 10/15/2009 11:20a DO Not Use Ward Assistant AT Glenn Tai, 81693 V70.0 Bakari Delgado,FACP 238.2 340 296.82 Plan of Care Future Appointment(s):03/28/2018 11:30 am - Saida Hopkins MD at [facility]08/21/2018 1:00 pm - Glenn Tai M.D.,FACP at [facility] Internal Medicine - [address]/24/2018 - Saida Hopkins, MDS43.52xD Sprain of left acromioclavicular joint, subsequent encounterFollow up:Follow up: 2 months
[2018-02-18 15:55] VITALS: BP 139/81
--- NOTE | 2018-02-18 16:34 | UC ---
UC General HPI - HPI Summary HPI Summary: "I have a uti". onset last pm. frequent -burning urination. no fever or abdominal pain. hx same. - History of Current Complaint Chief Complaint: UCGU Stated Complaint: URINARY Time Seen by Provider: 02/18/18 16:29 Hx Obtained From: Patient Hx Last Menstrual Period: 01/21/18 Onset/Duration: Gradual Onset Timing: Constant Pain Intensity: 0 Associated Signs & Symptoms: Negative: Abdominal Pain, Fever - Allergy/Home Medications Allergies/Adverse Reactions: Allergies Allergy/AdvReac Type Severity Reaction Status Date / Time hydromorphone [From Dilaudid] Allergy Itching Verified 11/02/17 06:40 latex Allergy Rash Verified 11/02/17 06:40 Sulfa (Sulfonamide Allergy Rash Verified 11/02/17 06:40 Antibiotics) sumatriptan [From Imitrex] Allergy Difficulty Verified 11/02/17 06:40 Breathing Penicillins AdvReac See Comment Verified 02/18/18 15:51 [place] [facility] OIL Allergy "TURNS RED Uncoded 11/02/17 06:40 AND JAMESON" PMH/Surg Hx/FS Hx/Imm Hx - Additional Past Medical History Additional PMH: MS, uti's - Surgical History Surgical History: Yes Surgery Procedure, Year, and Place: BILATERAL LEG FX REPAIRS - TIBIA FX W/ SCREWS/PINS & PLATES-X 2 SURGERIES- LAST SURGERY 3 YEARS AGO. Right shoulder - Family History Known Family History: Positive: Diabetes Negative: Cardiac Disease, Hypertension - Social History Occupation: Employed Full-time Alcohol Use: Occasionally Alcohol Amount: 1 DRINK 3-4 TIMES PER WEEK Substance Use Type: None Substance Use Comment - Amount & Last Used: 3-4 TIMES PER WEEK Smoking Status (MU): Former Smoker Amount Used/How Often: 3-4 CIGARETTES PER DAY X 5 YEARS Have You Smoked in the Last Year: No When Did the Patient Quit Smoking/Using Tobacco: 3 YEARS AGO - Immunization History Hx Tetanus, Diphtheria Vaccination: No Vaccination Up to Date: Yes Review of Systems Constitutional: Negative Skin: Negative Eyes: Negative ENT: Negative Respiratory: Negative Cardiovascular: Negative Gastrointestinal: Negative Genitourinary: Dysuria, Frequency, Urgency Motor: Negative Neurovascular: Negative Musculoskeletal: Negative Neurological: Negative Psychological: Negative Is Patient Immunocompromised?: No All Other Systems Reviewed And Are Negative: Yes Physical Exam Triage Information Reviewed: Yes Appearance: Well-Appearing Vital Signs: Initial Vital Signs Temp 98.4 F 02/18/18 15:49 Pulse 69 02/18/18 15:49 Resp 15 02/18/18 15:49 BP 139/81 02/18/18 15:49 Pulse Ox 100 02/18/18 15:49 Vital Signs Reviewed: Yes Eyes: Positive: Conjunctiva Clear ENT: Positive: Normal ENT inspection Neck: Positive: Supple, Nontender, No Lymphadenopathy Respiratory: Positive: Lungs clear, Normal breath sounds Cardiovascular: Positive: RRR, No Murmur Abdomen Description: Positive: Nontender, No Organomegaly, Soft. Negative: CVA Tenderness (R), CVA Tenderness (L), Distended, Guarding Bowel Sounds: Positive: Present Musculoskeletal: Positive: ROM Intact Neurological: Positive: Alert Psychological: Positive: Age Appropriate Behavior Skin Exam: Normal Diagnostics - Laboratory Diagnostic Studies Completed/Ordered: u/a= protein, blood, leukocytes present with culture pending. Course/Dx - Course Course Of Treatment: non toxic, no acute abdomen and no concern for pyelonephritis. pt request diflucan due to yeast infections with antibiotic use. - Differential Dx - Multi-Symptom Provider Diagnoses: UTI Discharge - Sign-Out/Discharge Documenting (check all that apply): Patient Departure All imaging exams completed and their final reports reviewed: No Studies - Discharge Plan Condition: Stable Disposition: HOME Prescriptions: Fluconazole [Diflucan 150 MG (NF)] 150 mg PO ONCE #1 tab Nitrofurantoin Monohyd/M-Cryst [Macrobid 100 mg Capsule] 100 mg PO BID 5 Days # 10 cap Patient Education Materials: Urinary Tract Infection in Women (ED) Referrals: Glenn Tai MD [Primary Care Provider] - 7 Days - Billing Disposition and Condition Condition: STABLE Disposition: Home
== END 2018-02-18 16:43 | disposition home or self-care (01) ==
LOC: UCCORT 15:06
DX: N39.0 Urinary tract infection, site not specified (principal); Z88.0 Allergy status to penicillin; Z88.1 Allergy status to other antibiotic agents; Z88.5 Allergy status to narcotic agent; F17.210 Nicotine dependence, cigarettes, uncomplicated
CPT/HCPCS: 81003; 87086; 99212; G0463